=== PATIENT | female | born 1995 | race Caucasian/White ===

== ENCOUNTER 2022-10-19 06:14 | Emergency (ER) | payer OTHER ==
[2022-10-19 06:43] VITALS: BP 126/84; PULSE 103; RESP 16; TEMP 98.8; BMI 22.3
== END 2022-10-19 10:28 | disposition home or self-care (01) ==
LOC: SUPCPDRO 06:14 → FER 06:14
DX: R10.31 Right lower quadrant pain (principal); R10.2 Pelvic and perineal pain
CPT/HCPCS: 76830-TC; 99284-25